=== PATIENT | female | born 1950 | race Caucasian/White ===

== ENCOUNTER 2016-11-03 19:07 | Emergency (ER) | payer BC ==
[~2016-11-03 19:07] MED LIST: ASPIR 8181 MG PO; ESTRADIOL1 MG PO; LEVOTHROID100 MCG PO; LISINOPRIL-HCTZ1 TAB PO; SIMVASTATIN40 MG PO
[2016-11-03] MEDS ORDERED: MELOXICAM (19:42)
== END 2016-11-03 21:01 ==
LOC: EDMED 19:07
PROC: 2Y41X5Z Packing of Nasal Region using Packing Material (ICD-10-PCS; principal; 2016-11-03)
DX: R04.0 Epistaxis (principal)